=== PATIENT | male | born 1980 | race African-American/Black ===

== ENCOUNTER 2021-11-26 12:02 | Inpatient (IN) | payer OTHER ==
[2021-11-26 13:07] VITALS: BMI 29.2
[2021-11-26] MEDS ORDERED: NICOTINE 10 MG CARTRIDGE (INHALER) IH PRN (16:34)
[2021-11-26] MEDS ORDERED: NALOXONE HCL (KLOXXADO) 8 MG SPRAY NS PRN (16:34)
[2021-11-26] MEDS ORDERED: BENZOCAINE/MENTHOL (CHLORASEPTIC ) LOZENGE MM PRN (16:34)
[2021-11-26] MEDS ORDERED: IBUPROFEN 400 MG TABLET (FP) PO PRN (16:34)
[2021-11-26] MEDS ORDERED: MAG HYDROX/AL HYDROX/SIMETH 30 ML UNIT-DOSE CUP PO PRN (16:34)
[2021-11-26] MEDS ORDERED: MAGNESIUM CITRATE 300 ML BOTTLE PO PRN (16:34)
[2021-11-26] MEDS ORDERED: MAGNESIUM HYDROX 2400MG/30ML ORAL SUSPENSION 30 ML CUP PO PRN (16:34)
[2021-11-26] MEDS ORDERED: LOPERAMIDE HCL 2 MG CAPSULE PO PRN (16:34)
[2021-11-26] MEDS ORDERED: ACETAMINOPHEN 325 MG TABLET (FP) PO PRN ×2 (16:34)
[2021-11-26] MEDS ORDERED: BISMUTH SUBSALICYLATE 524 MG/30 ML PO PRN (16:34)
[2021-11-26] MEDS ORDERED: ONDANSETRON *ODT* 4 MG TABLET SL PRN (16:34)
[2021-11-26] MEDS ORDERED: IBUPROFEN 600 MG TABLET (FP) PO PRN (16:34)
[2021-11-26] MEDS ORDERED: DICYCLOMINE HCL 10 MG CAPSULE PO PRN (16:34)
[2021-11-26] MEDS: levETIRAcetam 500 MG TABLET (FP) PO SCH (22:33)
[2021-11-26] MEDS: hydrOXYzine PAMOATE 25 MG CAPSULE (FP) PO PRN (22:33)
[2021-11-26] MEDS: MELATONIN 5 MG TABLETS PO SCH (22:33)
[2021-11-26] MEDS: THIAMINE HCL 100 MG TABLET (FP) PO SCH (22:33)
[2021-11-26] MEDS: METHOCARBAMOL 500 MG TABLET PO PRN (22:34)
[2021-11-27] MEDS ORDERED: diazePAM 5 MG TABLET PO PRN (09:23)
[2021-11-27] MEDS: levETIRAcetam 500 MG TABLET (FP) PO SCH ×2 (11:31→22:35)
[2021-11-27] MEDS: PRENATAL VITAMINS W/ FOLIC ACID TABLET (FP) PO SCH (11:31)
[2021-11-27] MEDS: diazePAM 5 MG TABLET PO SCH ×3 (11:31→22:35)
[2021-11-27 14:10] LABS: HEMATOCRIT 38.5 % (35.4-49); HEMOGLOBIN 12.3 GM/dL (11.7-16.9); MCH 30.3 pg (25.7-33.7); MEAN CELL VOLUME 94.9 fl (80-96); MEAN PLT VOLUME 9.6 fl (7.5-11.1); PLATELET COUNT 213 10^3/uL (134-434); RBC 4.05 M/mm3 (4.00-5.60); RDW 14.8 % (11.9-15.9); WHITE BLOOD COUNT 6.1 K/mm3 (4.0-10.0)
[2021-11-27 14:33] LABS: CALCIUM 8.9 mg/dL (8.5-10.1)
[2021-11-27 14:34] LABS: ALBUMIN 3.3 g/dl (3.4-5.0)
[2021-11-27 14:36] LABS: CREATININE 0.7 mg/dL (0.55-1.3)
[2021-11-27 14:37] LABS: BILIRUBIN,TOTAL 0.4 mg/dL (0.2-1); TOT PROT 6.9 g/dl (6.4-8.2)
[2021-11-27] MEDS: hydrOXYzine PAMOATE 25 MG CAPSULE (FP) PO PRN (18:05)
[2021-11-27] MEDS: THIAMINE HCL 100 MG TABLET (FP) PO SCH (22:35)
[2021-11-27] MEDS: MELATONIN 5 MG TABLETS PO SCH (22:36)
[2021-11-28] MEDS: diazePAM 5 MG TABLET PO SCH ×4 (06:43→22:14)
[2021-11-28] MEDS: levETIRAcetam 500 MG TABLET (FP) PO SCH ×2 (10:58→22:15)
[2021-11-28] MEDS: PRENATAL VITAMINS W/ FOLIC ACID TABLET (FP) PO SCH (10:58)
[2021-11-28] MEDS: METHOCARBAMOL 500 MG TABLET PO PRN ×2 (11:00→22:15)
[2021-11-28] MEDS: THIAMINE HCL 100 MG TABLET (FP) PO SCH (22:14)
[2021-11-28] MEDS: MELATONIN 5 MG TABLETS PO SCH (22:15)
[2021-11-29] MEDS: diazePAM 5 MG TABLET PO SCH ×3 (05:40→21:45)
[2021-11-29] MEDS: METHOCARBAMOL 500 MG TABLET PO PRN (10:23)
[2021-11-29] MEDS: PRENATAL VITAMINS W/ FOLIC ACID TABLET (FP) PO SCH (10:23)
[2021-11-29] MEDS: levETIRAcetam 500 MG TABLET (FP) PO SCH ×2 (10:23→21:44)
[2021-11-29] MEDS: MELATONIN 5 MG TABLETS PO SCH (21:44)
[2021-11-29] MEDS: THIAMINE HCL 100 MG TABLET (FP) PO SCH (21:45)
[2021-11-30] MEDS: diazePAM 5 MG TABLET PO SCH ×2 (05:36→17:17)
[2021-11-30] MEDS: levETIRAcetam 500 MG TABLET (FP) PO SCH ×2 (10:05→22:34)
[2021-11-30] MEDS: hydrOXYzine PAMOATE 25 MG CAPSULE (FP) PO PRN (10:07)
[2021-11-30] MEDS: METHOCARBAMOL 500 MG TABLET PO PRN (10:08)
[2021-11-30] MEDS: PRENATAL VITAMINS W/ FOLIC ACID TABLET (FP) PO SCH (10:08)
[2021-11-30] MEDS: THIAMINE HCL 100 MG TABLET (FP) PO SCH (22:34)
[2021-11-30] MEDS: MELATONIN 5 MG TABLETS PO SCH (22:34)
[2021-12-01] MEDS ORDERED: diazePAM 5 MG TABLET PO ONE (06:00)
[2021-12-01 09:55] VITALS: BP 118/76; PULSE 90; RESP 18; TEMP 97.8
[2021-12-01] MEDS: levETIRAcetam 500 MG TABLET (FP) PO SCH (10:15)
[2021-12-01] MEDS: PRENATAL VITAMINS W/ FOLIC ACID TABLET (FP) PO SCH (10:15)
== END 2021-12-01 10:21 | disposition home or self-care (01) | DRG 774 ==
LOC: EDSEX 12:02 → YASAS 12:02 → UNDOADMIN 17:11 → Y6N 17:11
PROVIDERS: ADMIT Allergy & Immunology; ATTEND Surgery
PROC: HZ2ZZZZ Detoxification Services for Substance Abuse Treatment (ICD-10-PCS; principal; 2021-11-26)
DX: F10.230 Alcohol dependence with withdrawal, uncomplicated (principal); F14.10 Cocaine abuse, uncomplicated; F17.210 Nicotine dependence, cigarettes, uncomplicated; R56.9 Unspecified convulsions; Z91.410 Personal history of adult physical and sexual abuse; Z59.00 Homelessness unspecified; Z91.013 Allergy to seafood
CPT/HCPCS: 36415; 80053; 80177; 85027; 86780; C9803-CS; U0003; U0005